=== PATIENT | female | born 1935 | race Caucasian/White ===

== ENCOUNTER 2019-03-04 09:50 | Emergency (ER) | payer OTHER ==
[2019-03-04 09:57] VITALS: RESP 18
--- NOTE | 2019-03-04 10:49 | ED PDOC ---
Arrival/HPI - General Chief Complaint: Upper Extremity Problem/Injury Time Seen by Provider: 03/04/19 09:58 Historian: Patient, Family - History of Present Illness Narrative History of Present Illness (Text): 03/04/19 10:46 83-year-old female presents today with right hand and wrist pain status post mechanical fall last night. Patient son states that the patient tripped and fell injuring the right wrist and hand yesterday. He states he applied BenGay and wrapped the wrist and gave her Tylenol for pain. She presents today with continued pain. She denies numbness weakness or tingling in the extremity. She is complaining of pain along the volar aspect of the wrist with limited range of motion. Patient is requesting stronger medications for pain. Patient denies hitting her head. She denies headache or neck pain. No chest pain or shortness of breath. No abdominal pain. She states the only pain is in the right arm. Time/Duration: Other (last night) Past Medical History - Provider Review Nursing Documentation Reviewed: Yes - Travel History Have you recently traveled outside [place] w/in the past 3 mons?: No - Reproductive Menopause: Yes - Cardiac Hx Hypertension: Yes - Endocrine/Metabolic Hx Hyperthyroidism: Yes - Hematological/Oncological Hx Cancer: Yes (Left breast CA) - Musculoskeletal/Rheumatological Hx Osteoporosis: Yes - Psychiatric Hx Substance Use: No - Surgical History Hx Mastectomy: Yes (Left) Family/Social History - Physician Review Nursing Documentation Reviewed: Yes Family/Social History: Unknown Family HX Smoking Status: Never Smoked Hx Alcohol Use: No Hx Substance Use: No Allergies/Home Meds Allergies/Adverse Reactions: Allergies No Known Allergies Allergy (Verified 03/04/19 09:57) Home Medications: Home Meds Medication Instructions Recorded Confirmed Anastrozole [Arimidex 1 mg Tab] 1 mg PO DAILY 03/04/19 03/04/19 Aspirin [Aspirin Chewable] 81 mg PO DAILY 03/04/19 03/04/19 Calcium Carbonate/Vitamin D3 1 tab PO DAILY 03/04/19 03/04/19 [Calcium 600 + Vit D Tablet] Methimazole [Tapazole] 5 mg PO TID 03/04/19 03/04/19 Multivit-Min/Iron/Folic Acid/K 1 tab PO DAILY 03/04/19 03/04/19 [Adults Multivitamin Caplet] Simvastatin 5 mg PO DAILY 03/04/19 03/04/19 amLODIPine [Norvasc] 5 mg PO DAILY 03/04/19 03/04/19 Review of Systems - Review of Systems Constitutional: absent: Fatigue, Fevers Respiratory: absent: SOB, Cough Cardiovascular: absent: Chest Pain, Palpitations Gastrointestinal: absent: Abdominal Pain, Constipation, Nausea, Vomiting Musculoskeletal: Arthralgias Skin: absent: Rash Neurological: absent: Headache, Dizziness Psychiatric: absent: Anxiety Physical Exam Vital Signs Reviewed: Yes Vital Signs Temp Pulse Resp BP Pulse Ox 03/04/19 09:53 97.7 F 83 18 128/76 97 Temperature: Afebrile Blood Pressure: Normal Pulse: Regular Respiratory Rate: Normal Appearance: Positive for: Well-Appearing, Non-Toxic, Comfortable Pain Distress: None Mental Status: Positive for: Alert and Oriented X 3 - Systems Exam Head: Present: Atraumatic Mouth: Present: Moist Mucous Membranes Neck: Present: Normal Range of Motion. No: MIDLINE TENDERNESS, Paraspinal Tenderness Respiratory/Chest: Present: Clear to Auscultation, Good Air Exchange. No: Respiratory Distress, Accessory Muscle Use Cardiovascular: Present: Regular Rate and Rhythm, Normal S1, S2. No: Murmurs Abdomen: No: Tenderness, Distention, Rebound, Guarding Back: Present: Normal Inspection. No: Midline Tenderness, Paraspinal Tenderness Upper Extremity: Present: NORMAL PULSES, Tenderness (right hand/wrist; there is ecchymosis and edema extending from the MCPS to the midshaft forearm. + tenderness over the volar aspect of both the radius and ulna distally. no proximal forearm tenderness. sensation and distal pulses intact. radial pulse strong and present. cap refill <2. ), Swelling, Neurovascularly Intact. No: Normal ROM Neurological: Present: GCS=15 Skin: Present: Warm, Dry, Normal Color Psychiatric: Present: Alert, Oriented x 3 Medical Decision Making ED Course and Treatment: 03/04/19 10:51 Patient nontoxic well-appearing in no distress with stable vital signs X-rays of the right wrist: FINDINGS: BONES: There is a transverse angulated fracture of the right distal radius JOINTS: Normal. No dislocation. SOFT TISSUES: Normal. OTHER FINDINGS: None. IMPRESSION: There is a transverse angulated fracture of the right distal radius X-rays of the right hand:There is a transverse angulated fracture of the right distal radius Ice applied. Tramadol given p.o. Case discussed with Dr. Parr in depth who advised placing the patient into a sugar tong splint and follow-up in his office. Patient placed in sugar tong splint applied. Sling applied. I discussed all results with patient/and her son advised to followup with the orthopedist for the next 2 days. Return if symptoms worsen persist or new symptoms develop Patient verbalizes understanding of discharge instructions and need for immediate followup. All aspects of this case were discussed the attending of record. Impression: Fracture, wrist Tylenol every 4 hours as needed for pain Tramadol: 1 tablet every 6 hours as needed for moderate to severe pain. may cause drowsiness. Rest, ice, compression, elevation Followup with the orthopedist within the next 2 days Followup with primary care physician within the next 2 days Return if any other concerning symptoms develop - RAD Interpretation Radiology Orders: 03/04/19 10:32 HAND RIGHT 3 VIEWS [RAD] Stat WRIST, RIGHT 3 VIEWS [RAD] Stat - Medication Orders Current Medication Orders: Discontinued Medications Tramadol HCl (Ultram) 50 mg PO STAT STA Stop: 03/04/19 10:33 Procedures - Splinting Location: right wrist Hand-Made Type: fiberglass Splint: sugar tong Pre-Proc Neuro Vasc Exam: normal Post-Proc Neuro Vasc Exam: normal Disposition/Present on Arrival - Present on Arrival Any Indicators Present on Arrival: No History of DVT/PE: No History of Uncontrolled Diabetes: No Urinary Catheter: No History of Decub. Ulcer: No History Surgical Site Infection Following: None - Disposition Have Diagnosis and Disposition been Completed?: Yes Diagnosis: Wrist fracture Disposition: HOME/ ROUTINE Disposition Time: 10:52 Patient Plan: Discharge Condition: GOOD Discharge Instructions (ExitCare): Wrist Fracture (DC) Additional Instructions: Tylenol every 4 hours as needed for pain Tramadol: 1 tablet every 6 hours as needed for moderate to severe pain. may cause drowsiness. Rest, ice, compression, elevation Followup with the orthopedist within the next 2 days Followup with primary care physician within the next 2 days Return if any other concerning symptoms develop Prescriptions: traMADol [Ultram] 50 mg PO Q6H PRN #6 tab PRN Reason: moderate to severe pain Referrals: Wilmar Parr MD [Staff Provider] - Follow up with primary [facility] [Outside] - [facility] with [facility] [Outside] - Follow up with primary [facility] [place] [Outside] - Follow up with primary Forms: [place] ([place])
--- NOTE | 2019-03-04 12:55 | RAD ---
Date of service: 03/04/2019 PROCEDURE: Right Wrist Radiographs. HISTORY: right wrist/hand pain s/p fall yesterday COMPARISON: None. TECHNIQUE: Three views obtained. FINDINGS: BONES: There is a transverse angulated fracture of the right distal radius JOINTS: Normal. No dislocation. SOFT TISSUES: Normal. OTHER FINDINGS: None. IMPRESSION: There is a transverse angulated fracture of the right distal radius
--- NOTE | 2019-03-04 12:56 | RAD ---
Date of service: 03/04/2019 PROCEDURE: Right Wrist Radiographs. HISTORY: wrist injury s/p fall last night COMPARISON: None. TECHNIQUE: Three views obtained. FINDINGS: BONES: There is a transverse angulated fracture of the right distal radius JOINTS: Normal. No dislocation. SOFT TISSUES: Normal. OTHER FINDINGS: None. IMPRESSION: There is a transverse angulated fracture of the right distal radius
[2019-03-04 13:29] VITALS: BP 124/75; PULSE 86; TEMP 97.8; O2SAT 100
== END 2019-03-04 13:28 | disposition home or self-care (01) ==
LOC: MERGE 09:50 → ED 09:50
DX: S52.501A Unspecified fracture of the lower end of right radius, initial encounter for closed fracture (principal); W01.0XXA Fall on same level from slipping, tripping and stumbling without subsequent striking against object, initial encounter; I10 Essential (primary) hypertension; E05.90 Thyrotoxicosis, unspecified without thyrotoxic crisis or storm; Z85.3 Personal history of malignant neoplasm of breast